=== PATIENT | male | born 1985 | race Caucasian/White ===

== ENCOUNTER → 2016-12-01 | Outpatient (CLI) | payer OTHER ==
[~2016-12-01] MED LIST: AMOXICILLIN500 MG PO; AUGMENTIN 875875 MG PO; CEPHALEXIN500 M1 PO; MOTRIN800 MG PO; NKHM; ZITHROMAX Z PA250 MG PO; ZOFRAN ODT4 MG SL
== END | disposition home or self-care (01) ==
LOC: LAB 08:00
DX: Z00.5 Encounter for examination of potential donor of organ and tissue (principal)

== ENCOUNTER 2017-02-21 08:05 | Emergency (ER) | payer OTHER ==
[~2017-02-21] VITALS: Ht 170.1 cm; Wt 113.4 kg
[2017-02-21] MEDS ORDERED: BACTRIM DS 8001 TA1 PO (11:13)
[2017-02-21] MEDS ORDERED: CEPHALEXIN500 M1 PO (11:13)
== END 2017-02-21 11:22 | disposition home or self-care (01) ==
LOC: ED 08:05
DX: L03.113 Cellulitis of right upper limb (principal); F17.200 Nicotine dependence, unspecified, uncomplicated; F90.9 Attention-deficit hyperactivity disorder, unspecified type

== ENCOUNTER 2018-07-15 20:20 | Emergency (ER) | payer SELFPAY ==
[~2018-07-15] VITALS: Ht 170.1 cm; Wt 127.0 kg
[~2018-07-15 20:20] MED LIST changes: +BACTRIM DS 8001 TA1 PO
[2018-07-15] MEDS ORDERED: AMOXICILLIN500 M2 PO (20:47)
== END 2018-07-15 21:10 | disposition home or self-care (01) ==
LOC: ED 20:20
DX: H66.92 Otitis media, unspecified, left ear (principal); R42 Dizziness and giddiness

== ENCOUNTER 2019-09-22 19:50 | Emergency (ER) | payer MEDICAID ==
[~2019-09-22] VITALS: Ht 170.1 cm; Wt 136.1 kg
[~2019-09-22 19:50] MED LIST changes: +AMOXICILLIN500 M2 PO
[2019-09-22] MEDS ORDERED: RISPERIDONE0.5 MG PO (20:01)
[2019-09-22] MEDS ORDERED: FLUOXETINE HYDR20 M1 PO (20:01)
[2019-09-22] MEDS ORDERED: AUGMENTIN 875-875 MG PO (21:52)
== END 2019-09-22 22:04 | disposition home or self-care (01) ==
LOC: ED 19:50
DX: J32.9 Chronic sinusitis, unspecified (principal); J40 Bronchitis, not specified as acute or chronic; F17.200 Nicotine dependence, unspecified, uncomplicated; Z79.899 Other long term (current) drug therapy

== ENCOUNTER 2020-05-09 13:44 | Emergency (ER) | payer OTHER ==
[~2020-05-09] VITALS: Ht 170.1 cm; Wt 167.8 kg
[~2020-05-09 13:44] MED LIST changes: +AUGMENTIN 875-875 MG PO; +FLUOXETINE HYDR20 M1 PO; +RISPERIDONE0.5 MG PO
[2020-05-09 14:18] LABS: BASO % 0.3 % (0.0-1.0); EOS # 0.1 10*3/uL (0.0-0.4); EOS % 1.1 % (1.0-4.0); HEMATOCRIT 42.6 % (42.0-52.0); LYMPH # 1.2 10*3/uL (1.3-4.4); LYMPH % 16.4 % (27.0-41.0); MEAN CELL VOLUME 89.5 fl (80.0-94.0); MEAN CORPUSCULAR HGB 29.4 pg (27.0-31.0); MEAN CORPUSCULAR HGB CONC 32.9 g/dl (33.0-37.0); MEAN PLATELET VOLUME 9.8 fl (9.6-12.3); MONO # 0.5 10*3/uL (0.1-1.0); MONO % 6.8 % (3.0-9.0); NEUT # 5.4 10*3/uL (2.3-7.9); NEUT % 74.7 % (47.0-73.0); PLATELET COUNT AUTOMATED 162 10*3/uL (130-400); RED BLOOD COUNT 4.76 10*6/uL (4.50-5.90); RED CELL DISTRI WIDTH 13.2 % (0-14.5); WHITE BLOOD COUNT 7.2 10*3/uL (4.8-10.8)
[2020-05-09 14:30] LABS: ACT PARTIAL THROMBO TIME 25.7 SECONDS (20.0-32.1); INTERNATIONAL NORM RATIO 1.1 (2.0-3.5)
[2020-05-09 14:33] LABS: ALKALINE PHOSPHATASE 88 U/L (45-117); BUN 12 mg/dl (7-24); CHLORIDE 108 mmol/L (98-107); CREATININE 1.02 mg/dL (0.70-1.30); POTASSIUM 3.7 mmol/L (3.5-5.1); SGOT/AST 97 IU/L (3-35); SGPT/ALT 183 U/L (12-78); SODIUM 141 mmol/L (136-145); TOTAL PROTEIN 7.5 gm/dL (6.4-8.2)
[2020-05-09 14:34] LABS: ACETAMINOPHEN (TYLENOL) < 5.0 ug/ml (10-30); ETHYL ALCOHOL < 3.0 mg/dl (<3); TROPONIN I < 0.015 ng/ml (<0.045)
[2020-05-09 15:59] LABS: URINE AMPHETAMINES < 1000 (1000ng/ml); URINE BARBITURATES < 200 (200ng/ml); URINE BENZODIAZEPINES < 200 (200ng/ml); URINE CANNABINOIDS (THC) < 50 (50ng/ml); URINE COCAINE > 300 (300ng/ml); URINE METHADONE < 300 (300ng/ml); URINE OPIATES < 300 (300ng/ml)
[2020-05-09 16:03] LABS: URINE PHENCYCLIDINE < 25 (25ng/ml)
== END 2020-05-09 15:53 | disposition left against medical advice (07) ==
LOC: ED 13:44
PROVIDERS: Internal Medicine
DX: T65.91XA Toxic effect of unspecified substance, accidental (unintentional), initial encounter (principal); Z79.899 Other long term (current) drug therapy; F17.200 Nicotine dependence, unspecified, uncomplicated; Y92.89 Other specified places as the place of occurrence of the external cause

== ENCOUNTER 2021-08-12 05:52 | Emergency (ER) | payer OTHER ==
[~2021-08-12] VITALS: Ht 170.1 cm; Wt 181.4 kg
[2021-08-12 06:26] LABS: BASO % 0.3 % (0.0-1.0); EOS % 0.8 % (1.0-4.0); HEMATOCRIT 42.6 % (42.0-52.0); LYMPH # 1.2 10*3/uL (1.3-4.4); LYMPH % 32.2 % (27.0-41.0); MEAN CORPUSCULAR HGB 29.4 pg (27.0-31.0); MEAN CORPUSCULAR HGB CONC 31.9 g/dl (33.0-37.0); MEAN PLATELET VOLUME 10.1 fl (9.6-12.3); MONO # 0.5 10*3/uL (0.1-1.0); MONO % 14.3 % (3.0-9.0); NEUT # 1.9 10*3/uL (2.3-7.9); NEUT % 52.1 % (47.0-73.0); PLATELET COUNT AUTOMATED 139 10*3/uL (130-400); RED BLOOD COUNT 4.63 10*6/uL (4.50-5.90); RED CELL DISTRI WIDTH 14.3 % (0-14.5); WHITE BLOOD COUNT 3.7 10*3/uL (4.8-10.8)
[2021-08-12 06:42] LABS: ALBUMIN 2.1 gm/dl (3.1-4.5); ALKALINE PHOSPHATASE 115 U/L (45-117); BUN 8 mg/dl (7-24); CHLORIDE 108 mmol/L (98-107); POTASSIUM 3.8 mmol/L (3.5-5.1); SGOT/AST 817 IU/L (3-35); SGPT/ALT 810 U/L (12-78); SODIUM 137 mmol/L (136-145); TOTAL PROTEIN 7.2 gm/dL (6.4-8.2)
== END 2021-08-12 12:39 | disposition home or self-care (01) ==
LOC: ED 05:52
PROVIDERS: Internal Medicine
DX: U07.1 COVID-19 (principal)

== ENCOUNTER 2021-11-04 01:12 | Emergency (ER) | payer OTHER ==
[~2021-11-04] VITALS: Ht 170.1 cm; Wt 167.8 kg
[2021-11-04] MEDS ORDERED: VIBRA-TAB100 MG PO (01:39)
== END 2021-11-04 01:39 | disposition home or self-care (01) ==
LOC: ED 01:12
DX: J32.9 Chronic sinusitis, unspecified (principal)

== ENCOUNTER 2023-02-22 07:16 | Emergency (ER) | payer OTHER ==
[~2023-02-22] VITALS: Ht 170.1 cm; Wt 167.8 kg
[~2023-02-22 07:16] MED LIST changes: +VIBRA-TAB100 MG PO
[2023-02-22 08:13] LABS: BASO % 0.7 % (0.0-1.0); EOS # 0.1 10*3/uL (0.0-0.4); EOS % 1.5 % (1.0-4.0); HEMATOCRIT 44.4 % (42.0-52.0); LYMPH # 1.8 10*3/uL (1.3-4.4); LYMPH % 30.8 % (27.0-41.0); MEAN CELL VOLUME 90.8 fl (80.0-94.0); MEAN CORPUSCULAR HGB 30.1 pg (27.0-31.0); MEAN CORPUSCULAR HGB CONC 33.1 g/dl (33.0-37.0); MEAN PLATELET VOLUME 9.6 fl (9.6-12.3); MONO # 0.5 10*3/uL (0.1-1.0); MONO % 7.7 % (3.0-9.0); NEUT # 3.5 10*3/uL (2.3-7.9); PLATELET COUNT AUTOMATED 177 10*3/uL (130-400); RED BLOOD COUNT 4.89 10*6/uL (4.50-5.90); RED CELL DISTRI WIDTH 13.4 % (0-14.5); WHITE BLOOD COUNT 5.9 10*3/uL (4.8-10.8)
[2023-02-22 08:36] LABS: ALKALINE PHOSPHATASE 73 U/L (46-116); BUN 9 mg/dl (9-23); CHLORIDE 106 mmol/L (98-107); LIPASE 39 U/L (12-53); POTASSIUM 3.8 mmol/L (3.4-5.1); SGPT/ALT 47 U/L (10-49); TOTAL PROTEIN 7.2 gm/dL (6.0-8.0)
== END 2023-02-22 10:02 | disposition home or self-care (01) ==
LOC: ED 07:16
PROVIDERS: Emergency Medicine
DX: E86.0 Dehydration (principal); F19.10 Other psychoactive substance abuse, uncomplicated

== ENCOUNTER 2023-03-29 05:49 | Emergency (ER) | payer SELFPAY ==
[~2023-03-29] VITALS: Ht 170.1 cm; Wt 167.8 kg
[2023-03-29] MEDS ORDERED: Motrin,Rufen800 MG PO (08:55)
== END 2023-03-29 09:25 | disposition home or self-care (01) ==
LOC: ED 05:49
DX: S49.92XA Unspecified injury of left shoulder and upper arm, initial encounter (principal); Z98.890 Other specified postprocedural states; F19.10 Other psychoactive substance abuse, uncomplicated; X50.0XXA Overexertion from strenuous movement or load, initial encounter; Y93.89 Activity, other specified; Y92.89 Other specified places as the place of occurrence of the external cause; Y99.8 Other external cause status